=== PATIENT | female | born 1960 | race Caucasian/White ===

== ENCOUNTER 2018-05-21 16:03 | Emergency (ER) | payer MEDICARE, MEDICAID ==
[~2018-05-21] VITALS: Ht 172.7 cm; Wt 80.5 kg
[2018-05-21 16:15] VITALS: Ht 172.7 cm; Wt 80.5 kg
[2018-05-21] MEDS ORDERED: BENZTROPINE MESY2 MG PO (16:18)
[2018-05-21] MEDS ORDERED: TORADOL10 MG PO (16:18)
[2018-05-21] MEDS ORDERED: TRAZODONE HCL150 MG PO (16:19)
[2018-05-21] MEDS ORDERED: CELEXA40 MG PO (16:19)
[2018-05-21] MEDS ORDERED: LATUDA80 MG PO (16:19)
[2018-05-21] MEDS ORDERED: TOPAMAX100 MG PO (16:20)
[2018-05-21] MEDS ORDERED: WELLBUTRIN XL150 M1 PO (16:20)
[2018-05-21] MEDS ORDERED: PRAVACHOL40 MG PO ×2 (16:21→16:22)
[2018-05-21] MEDS ORDERED: PROTONIX40 MG PO (16:21)
[2018-05-21] MEDS ORDERED: DICLOFENAC SODI50 MG PO (16:21)
[2018-05-21] MEDS ORDERED: SUMATRIPTAN SUC25 MG PO (18:58)
[2018-05-21 20:29] VITALS: BP 166/90
== END 2018-05-21 20:32 | disposition home or self-care (01) ==
LOC: D.ER 16:03
DX: R51 Headache (principal); E86.0 Dehydration; K21.9 Gastro-esophageal reflux disease without esophagitis; F17.200 Nicotine dependence, unspecified, uncomplicated